=== PATIENT | male | born 1980 | race African-American/Black ===

== ENCOUNTER 2019-06-01 18:10 | Emergency (ER) | payer BC, SELFPAY | END 2019-06-01 18:45 | disposition home or self-care (01) | LOC: SCSER 18:10 | DX: F41.9 Anxiety disorder, unspecified (principal) | CPT/HCPCS: 99283 ==

== ENCOUNTER 2020-04-05 10:16 | Outpatient (CLI) | payer BC ==
--- NOTE | 2020-04-05 11:38 | RAD ---
RIGHT FOOT 3 VIEWS: Date: 04/05/2020 HISTORY: Right foot pain. FINDINGS: No fracture, dislocation, or other significant acute process. IMPRESSION: Unremarkable right foot. POS: [facility]
== END 2020-04-05 10:17 | disposition home or self-care (01) ==
LOC: BICRAD 10:16
PROVIDERS: ATTEND Nurse Practitioner Family
DX: M79.671 Pain in right foot (principal)